=== PATIENT | female | born 1945 | race Two or more races ===

== ENCOUNTER 2019-12-18 10:17 | Outpatient (CLI) | payer OTHER | END 2019-12-18 10:22 | disposition home or self-care (01) | LOC: RAD 10:17 | PROVIDERS: ATTEND Specialist | DX: J45.998 Other asthma (principal); J44.9 Chronic obstructive pulmonary disease, unspecified ==

== ENCOUNTER → 2020-06-16 | Outpatient (CLI) | payer OTHER | END | disposition home or self-care (01) | LOC: TOM 12:15 | PROVIDERS: ATTEND Specialist | DX: M48.07 Spinal stenosis, lumbosacral region (principal); I72.8 Aneurysm of other specified arteries; M51.17 Intervertebral disc disorders with radiculopathy, lumbosacral region ==

== ENCOUNTER 2020-09-16 13:54 | Emergency (ER) | payer OTHER ==
[~2020-09-16] VITALS: Ht 157.5 cm; Wt 56.7 kg
[2020-09-16] MEDS ORDERED: CHILDREN'S ASPI81 MG PO (14:15)
[2020-09-16] MEDS ORDERED: SIMVASTATIN40 MG PO (14:15)
[2020-09-16] MEDS ORDERED: TOPROL XL25 M1 PO (14:15)
== END 2020-09-16 18:43 | disposition home or self-care (01) ==
LOC: ER 13:54
DX: J06.9 Acute upper respiratory infection, unspecified (principal); Z03.818 Encounter for observation for suspected exposure to other biological agents ruled out

== ENCOUNTER 2020-09-22 13:55 | Emergency (ER) | payer OTHER ==
[~2020-09-22] VITALS: Ht 157.5 cm; Wt 56.7 kg
[~2020-09-22 13:55] MED LIST: CHILDREN'S ASPI81 MG PO; SIMVASTATIN40 MG PO; TOPROL XL25 M1 PO
[2020-09-22] MEDS ORDERED: MUCINEX DM ER1 EAC1 PO (20:17)
[2020-09-22] MEDS ORDERED: ZYRTEC10 MG PO (20:17)
== END 2020-09-22 20:34 | disposition home or self-care (01) ==
LOC: ER 13:55
DX: J30.89 Other allergic rhinitis (principal); J06.9 Acute upper respiratory infection, unspecified

== ENCOUNTER 2020-12-25 19:50 | Emergency (ER) | payer OTHER ==
[~2020-12-25] VITALS: Ht 152.4 cm; Wt 58.1 kg
[~2020-12-25 19:50] MED LIST changes: +MUCINEX DM ER1 EAC1 PO; +ZYRTEC10 MG PO
[2020-12-25] MEDS ORDERED: ZESTRIL2.5 MG (20:31)
[2020-12-25] MEDS ORDERED: CRESTOR40 MG (20:31)
[2020-12-25] MEDS ORDERED: FLONASE ALLERG9.9 ML IH (23:07)
[2020-12-25] MEDS ORDERED: MUCINEX DM ER1 EAC1 PO (23:07)
== END 2020-12-25 23:49 | disposition home or self-care (01) ==
LOC: ER 19:50 → EMR PED 20:04 → ER 23:49
DX: J06.9 Acute upper respiratory infection, unspecified (principal); R53.81 Other malaise; Z11.52 Encounter for screening for COVID-19

== ENCOUNTER 2021-11-26 07:19 | Outpatient (CLI) | payer OTHER ==
[~2021-11-26 07:19] MED LIST changes: +CRESTOR40 MG; +FLONASE ALLERG9.9 ML IH; +ZESTRIL2.5 MG
== END 2021-11-26 07:21 | disposition home or self-care (01) ==
LOC: SONOGRAMA 07:19
PROVIDERS: ATTEND Internal Medicine Cardiovascular Disease
DX: I71.02 Dissection of abdominal aorta (principal)

== ENCOUNTER 2021-12-23 13:51 | Inpatient (IN) | payer OTHER ==
[~2021-12-23] VITALS: Ht 154.9 cm; Wt 58.1 kg
--- NOTE | 2021-12-23 14:01 | NUR ---
SE RECIBE PTE ALERTA ORIENTADA X3. PTE REFIERE SENTIR DOLOR DE [facility] Y [facility], SE JUAN F TEMPERATURA 102.1,PTE REFIERE TENER TOS HACE 3 [place]. SE SHARIFA S/V Y SE UBICA.
--- NOTE | 2021-12-23 14:39 | NUR ---
LAB TESTS ARE TAKEN AND MEDS ARE ADMINISTERED ACCORDINGLY.
[2021-12-24] MEDS ORDERED: EZETIMIBE10 MG (08:59)
== END 2021-12-29 10:30 | disposition home or self-care (01) | DRG 195 ==
LOC: ER 13:51 → MEDJ 19:56
PROVIDERS: ADMIT Specialist; ATTEND Specialist
PROC: BW24ZZZ Computerized Tomography (CT Scan) of Chest and Abdomen (ICD-10-PCS; principal; 2021-12-23)
DX: J18.9 Pneumonia, unspecified organism (principal); R09.02 Hypoxemia; R06.02 Shortness of breath; I11.9 Hypertensive heart disease without heart failure; I25.10 Atherosclerotic heart disease of native coronary artery without angina pectoris; F17.200 Nicotine dependence, unspecified, uncomplicated; Z20.822 Contact with and (suspected) exposure to COVID-19

== ENCOUNTER 2022-01-14 13:15 | Outpatient (CLI) | payer OTHER ==
[~2022-01-14 13:15] MED LIST changes: +EZETIMIBE10 MG
== END 2022-01-14 13:17 | disposition home or self-care (01) ==
LOC: MAMO-SONO 13:15 → NUCLEAR 13:30
PROVIDERS: ATTEND Internal Medicine Cardiovascular Disease
DX: Z12.31 Encounter for screening mammogram for malignant neoplasm of breast (principal); N63.11 Unspecified lump in the right breast, upper outer quadrant

== ENCOUNTER 2022-01-14 14:33 | Outpatient (CLI) | payer OTHER | END 2022-01-14 14:34 | disposition home or self-care (01) | LOC: NUCLEAR 14:33 | PROVIDERS: ATTEND Internal Medicine Cardiovascular Disease | DX: M81.0 Age-related osteoporosis without current pathological fracture (principal); E55.9 Vitamin D deficiency, unspecified ==

== ENCOUNTER 2022-07-01 07:23 | Emergency (ER) | payer OTHER ==
[~2022-07-01] VITALS: Ht 154.9 cm; Wt 54.9 kg
== END 2022-07-01 16:03 | disposition home or self-care (01) ==
LOC: ER 07:23
DX: K57.32 Diverticulitis of large intestine without perforation or abscess without bleeding (principal); E78.00 Pure hypercholesterolemia, unspecified; I10 Essential (primary) hypertension

== ENCOUNTER 2023-05-19 17:52 | Emergency (ER) | payer OTHER ==
[~2023-05-19] VITALS: Ht 154.9 cm; Wt 57.6 kg
[2023-05-19 19:14] LABS: HEMATOCRIT 42.9 % (36.0-45.00); HEMOGLOBIN 14.5 g/dL (12.0-15.00); MEAN CELL VOLUME 86.8 fL (80.00-100.00); MEAN CORPUSCULAR HEMOGLOBIN 29.4 pg (27.00-32.0); MEAN CORPUSCULAR HGB CONC 33.9 g/dl (32.0-36.0); PLATELET COUNT 209 K/uL (150-450); RED BLOOD COUNT 4.95 M/uL (4.00-6.00); RED CELL DISTRIBUTION WIDTH 14.5 % (11.5-14.5)
[2023-05-19 19:40] LABS: ALBUMIN 3.6 gm/dL (3.4-5.0); BILIRUBIN TOTAL 0.37 mg/dL (0.3-1.2); CALCIUM 8.8 mg/dL (8.5-10.1); CREATININE SERUM 0.72 mg/dL (0.55-1.02); GFR 78.75; GLOBULINA 3.6 G/DL (2.4-3.5); POTASSIUM 3.66 mEq/L (3.5-5.1); TOTAL PROTEIN 7.2 gm/dL (6.4-8.2)
[2023-05-19] MEDS ORDERED: KETO10TA2 PO (20:07)
[2023-05-19] MEDS ORDERED: PEPCID AC20 MG PO (20:07)
[2023-05-19] MEDS ORDERED: TAMS0.4C PO (20:07)
== END 2023-05-19 21:10 | disposition home or self-care (01) ==
LOC: ER 17:52
PROVIDERS: General Practice
DX: N20.1 Calculus of ureter (principal); I11.9 Hypertensive heart disease without heart failure; K57.30 Diverticulosis of large intestine without perforation or abscess without bleeding; N13.39 Other hydronephrosis
CPT/HCPCS: 36415; 74176; 96365; 96366; 99284; J1885; J2543; J3490; J7030

== ENCOUNTER 2023-05-24 08:27 | Outpatient (CLI) | payer OTHER ==
[~2023-05-24 08:27] MED LIST changes: +KETO10TA2 PO; +PEPCID AC20 MG PO; +TAMS0.4C PO
== END 2023-05-24 08:34 | disposition home or self-care (01) ==
LOC: RAD 08:27
PROVIDERS: ATTEND General Practice
DX: N20.9 Urinary calculus, unspecified (principal)

== ENCOUNTER 2023-06-13 13:13 | Outpatient (CLI) | payer OTHER | END 2023-06-13 13:24 | disposition home or self-care (01) | LOC: RAD 13:13 | PROVIDERS: ATTEND Urology | DX: N20.1 Calculus of ureter (principal) ==

== ENCOUNTER 2023-06-28 15:17 | Emergency (ER) | payer OTHER ==
[~2023-06-28] VITALS: Ht 157.5 cm; Wt 49.9 kg
[2023-06-28] MEDS ORDERED: AMOX-CLAV 875-1 EAC1 PO (16:43)
[2023-06-28] MEDS ORDERED: AYR SALINE50 ML NASAL (16:43)
[2023-06-28] MEDS ORDERED: ZYRTEC10 MG PO (16:43)
[2023-06-28] MEDS ORDERED: FLONASE ALLERG9.9 ML NASAL (16:43)
== END 2023-06-28 16:50 | disposition home or self-care (01) ==
LOC: ER 15:17
DX: J32.9 Chronic sinusitis, unspecified (principal); F17.210 Nicotine dependence, cigarettes, uncomplicated; I10 Essential (primary) hypertension

== ENCOUNTER 2023-07-18 11:01 | Outpatient (CLI) | payer OTHER ==
[~2023-07-18 11:01] MED LIST changes: +AMOX-CLAV 875-1 EAC1 PO; +AYR SALINE50 ML NASAL; +FLONASE ALLERG9.9 ML NASAL
== END 2023-07-18 11:05 | disposition home or self-care (01) ==
LOC: RAD 11:01
DX: N20.0 Calculus of kidney (principal); N20.1 Calculus of ureter

== ENCOUNTER 2023-07-18 12:07 | Outpatient (CLI) | payer OTHER | END 2023-07-18 13:23 | disposition home or self-care (01) | LOC: EKG 12:07 | PROVIDERS: ATTEND Urology | DX: N20.0 Calculus of kidney (principal); N20.1 Calculus of ureter ==

== ENCOUNTER 2023-08-18 13:23 | Outpatient (CLI) | payer OTHER | END 2023-08-18 13:28 | disposition home or self-care (01) | LOC: RAD 13:23 | PROVIDERS: ATTEND Urology | DX: N20.0 Calculus of kidney (principal) ==

== ENCOUNTER 2023-11-22 12:03 | Outpatient (CLI) | payer OTHER ==
[~2023-11-22 12:03] MED LIST changes: +CRESTOR20 MG PO; +TOPROL XL50 M1 PO; +ZESTRIL10 M1 PO
== END 2023-11-22 12:15 | disposition home or self-care (01) ==
LOC: SONOGRAMA 12:03
PROVIDERS: ATTEND Urology
DX: N13.0 Hydronephrosis with ureteropelvic junction obstruction (principal); N20.0 Calculus of kidney

== ENCOUNTER 2024-05-10 14:17 | Emergency (ER) | payer OTHER ==
[~2024-05-10] VITALS: Ht 157.5 cm; Wt 56.7 kg
[2024-05-10 15:08] VITALS: BP 139/87; O2SAT 98
[2024-05-10] MEDS ORDERED: CEFTRIAXONE SODIUM 1,000 MG VIAL IM STA (17:35)
[2024-05-10] MEDS ORDERED: LIDOCAINE HCL 1% 10ML VIAL ONE (17:39)
[2024-05-10] MEDS ORDERED: CEFTRIAXONE SODIUM 1,000 MG VIAL ONE (17:39)
[2024-05-10] MEDS ORDERED: ZITHROMAX500 MG PO (18:47)
== END 2024-05-10 18:56 | disposition home or self-care (01) ==
LOC: ER 14:19
DX: R53.81 Other malaise (principal); J32.9 Chronic sinusitis, unspecified

== ENCOUNTER → 2024-05-21 | Emergency (ER) | payer OTHER ==
[~2024-05-21] VITALS: Ht 154.9 cm; Wt 56.7 kg
[~2024-05-21] MED LIST changes: +BUDESONIDE 0.5 MG/2 ML AMPUL.NEB IH ONE; +BUDESONIDE 0.5 MG/2 ML AMPUL.NEB IH STA; +CEFTRIAXONE SODIUM 1,000 MG VIAL IV STA; +CEFTRIAXONE SODIUM 1,000 MG VIAL ONE; +GUAIFENESIN/DEXTROMETHORPHAN 10ML BLIST.PACK PO ONE; +LEVALBUTEROL HCL 0.63 MG/3 ML SOLUTION IH ONE; +LEVALBUTEROL HCL 1.25 MG/3 ML SOLUTION IH ONE; +LEVALBUTEROL HCL 1.25 MG/3 ML SOLUTION IH STA; +METHYLPREDNISOLONE SOD SUCC 125 MG VIAL IV STA; +METHYLPREDNISOLONE SOD SUCC 125 MG VIAL ONE; +ORAPRED ODT10 MG PO; +ZITHROMAX500 MG PO
[2024-05-21 19:09] LABS: HEMATOCRIT 43.2 % (36.0-45.00); HEMOGLOBIN 14.3 g/dL (12.0-15.00); MEAN CELL VOLUME 88.5 fL (80.00-100.00); MEAN CORPUSCULAR HEMOGLOBIN 29.3 pg (27.00-32.0); MEAN CORPUSCULAR HGB CONC 33.1 g/dl (32.0-36.0); PLATELET COUNT 237 K/uL (150-450); RED BLOOD COUNT 4.88 M/uL (4.00-6.00); RED CELL DISTRIBUTION WIDTH 14.1 % (11.5-14.5)
[2024-05-21 19:54] LABS: CALCIUM 9.1 mg/dL (8.5-10.1); CREATININE SERUM 0.67 mg/dL (0.55-1.02); GFR 85.35; POTASSIUM 3.54 mEq/L (3.5-5.1)
== END | disposition home or self-care (01) ==
LOC: ER 15:57
PROVIDERS: General Practice
DX: J11.1 Influenza due to unidentified influenza virus with other respiratory manifestations (principal); R05.9 Cough, unspecified; Z20.822 Contact with and (suspected) exposure to COVID-19
CPT/HCPCS: 36415; 71046; 96365; 99283; J0696; J3490

== ENCOUNTER 2024-05-23 03:02 | Inpatient (IN) | payer OTHER ==
[~2024-05-23] VITALS: Ht 157.5 cm; Wt 56.7 kg
[~2024-05-23 03:02] MED LIST changes: -BUDESONIDE 0.5 MG/2 ML AMPUL.NEB IH ONE; -BUDESONIDE 0.5 MG/2 ML AMPUL.NEB IH STA; -CEFTRIAXONE SODIUM 1,000 MG VIAL IV STA; -CEFTRIAXONE SODIUM 1,000 MG VIAL ONE; -GUAIFENESIN/DEXTROMETHORPHAN 10ML BLIST.PACK PO ONE; -LEVALBUTEROL HCL 0.63 MG/3 ML SOLUTION IH ONE; -LEVALBUTEROL HCL 1.25 MG/3 ML SOLUTION IH ONE; -LEVALBUTEROL HCL 1.25 MG/3 ML SOLUTION IH STA; -METHYLPREDNISOLONE SOD SUCC 125 MG VIAL IV STA; -METHYLPREDNISOLONE SOD SUCC 125 MG VIAL ONE
[2024-05-23] MEDS ORDERED: METHYLPREDNISOLONE SOD SUCC 125 MG VIAL IV STA (04:57)
[2024-05-23] MEDS ORDERED: GUAIFENESIN 200 MG/10 ML BLIST.PACK PO STA (04:57)
[2024-05-23] MEDS ORDERED: 0.9 % SODIUM CHLORIDE 1,000 ML IV ONE (05:00)
[2024-05-23] MEDS ORDERED: LEVALBUTEROL HCL 0.63 MG/3 ML SOLUTION IH SCH ×2 (05:00→09:00)
[2024-05-23 06:15] LABS: ABG PH 7.477 (7.35-7.45); ABG pCO2 35.5 mmHg (35-45); BASE EXCESS 2.4 mmol/l; BICARBONATE 25.7 mmol/l (23-25); Tco2 26.7 mmol/l; allen test SATISFACTORY; o2 21 %; puncture site RADIAL LEFT
[2024-05-23 06:16] LABS: ABG PO2 43.2 mmHg (80-100)
[2024-05-23 06:29] LABS: HEMATOCRIT 41.2 % (36.0-45.00); HEMOGLOBIN 13.9 g/dL (12.0-15.00); MEAN CORPUSCULAR HEMOGLOBIN 29.6 pg (27.00-32.0); MEAN CORPUSCULAR HGB CONC 33.7 g/dl (32.0-36.0); PLATELET COUNT 175 K/uL (150-450); RED BLOOD COUNT 4.68 M/uL (4.00-6.00); RED CELL DISTRIBUTION WIDTH 14.5 % (11.5-14.5)
[2024-05-23 07:30] LABS: ALBUMIN 3.3 gm/dL (3.4-5.0); BILIRUBIN TOTAL 0.49 mg/dL (0.3-1.2); CALCIUM 8.3 mg/dL (8.5-10.1); CREATININE SERUM 0.64 mg/dL (0.55-1.02); GFR 89.98; GLOBULINA 2.6 G/DL (2.4-3.5); POTASSIUM 3.86 mEq/L (3.5-5.1); TOTAL PROTEIN 5.9 gm/dL (6.4-8.2)
[2024-05-23 08:04] LABS: URINE APPEARANCE Clear; URINE BACTERIA 14.6 uL (0.0-1933); URINE BILIRRUBIN Negative (NEGATIVE); URINE BLOOD Small; URINE COLOR Yellow; URINE EPITHELIAL CELLS 1.5 uL (0.0-38.8); URINE GLUCOSE Negative (NEGATIVE); URINE KETONE Negative (NEGATIVE); URINE LEUKOCYTE Negative; URINE NITRATE Negative; URINE PROTEIN Negative (NEGATIVE); URINE RBC 27.5 uL (0.0-20.8); URINE UROBILINOGEN 0.2 E.U./dl
[2024-05-23] MEDS ORDERED: LEVALBUTEROL HCL 0.63 MG/3 ML SOLUTION IH ONE (13:40)
[2024-05-23] MEDS ORDERED: AZITHROMYCIN 500 MG VIAL IV SCH (18:43)
[2024-05-23] MEDS ORDERED: OSELTAMIVIR PHOSPHATE 75 MG CAPSULE PO SCH (18:43)
[2024-05-23] MEDS ORDERED: METOPROLOL TARTRATE 50 MG TABLET PO SCH (18:44)
[2024-05-23] MEDS ORDERED: LISINOPRIL 10 MG TABLET PO SCH (18:44)
[2024-05-23] MEDS ORDERED: 0.9 % SODIUM CHLORIDE 1,000 ML IV SCH (18:45)
[2024-05-23] MEDS ORDERED: ACETAMINOPHEN 500 MG GEL..CAP PO PRN (18:45)
[2024-05-23] MEDS ORDERED: AZITHROMYCIN 500 MG VIAL IV ONE (20:16)
[2024-05-23] MEDS ORDERED: METOPROLOL TARTRATE 25 MG TABLET PO ONE (20:16)
[2024-05-23] MEDS ORDERED: OSELTAMIVIR PHOSPHATE 75 MG CAPSULE PO ONE (20:16)
[2024-05-23 21:04] VITALS: BP 100/50; O2SAT 94
[2024-05-23 22:04] LABS: INR 1.15; PARTIAL THROMBOPLASTIN TIME 34.7 SECONDS (22.0-34.0); PROTHROMBIN TIME 12.4 SECONDS (9.0-11.5)
[2024-05-24 00:19] VITALS: BP 109/69; O2SAT 95
[2024-05-24 06:52] VITALS: BP 107/71
[2024-05-24] MEDS ORDERED: AZITHROMYCIN 500 MG VIAL IV ONE (08:11)
[2024-05-24 09:35] VITALS: BP 123/67
[2024-05-24 11:56] LABS: ABG PO2 51.8 mmHg (80-100); BASE EXCESS 1.6 mmol/l; BICARBONATE 25.9 mmol/l (23-25); SaO2 87.6 %; Tco2 27.2 mmol/l; allen test SATISFACTORY; o2 21 %; puncture site RADIAL LEFT
[2024-05-24] MEDS ORDERED: LACTOBACILLUS ACIDOPHILUS 1 CAP CAP PO SCH (17:00)
[2024-05-24 18:30] VITALS: BP 115/58
[2024-05-24] MEDS ORDERED: OSELTAMIVIR PHOSPHATE 30MG CAP PO SCH (21:00)
[2024-05-25 02:56] VITALS: BP 127/66; O2SAT 95
[2024-05-25 04:24] LABS: ERYTHROCYTE SEDIMENTATION RATE 5 mm/hr
[2024-05-25 04:31] LABS: HEMATOCRIT 40.7 % (36.0-45.00); HEMOGLOBIN 14.2 g/dL (12.0-15.00); MEAN CELL VOLUME 86.2 fL (80.00-100.00); MEAN CORPUSCULAR HGB CONC 34.8 g/dl (32.0-36.0); RED BLOOD COUNT 4.72 M/uL (4.00-6.00); RED CELL DISTRIBUTION WIDTH 14.6 % (11.5-14.5)
[2024-05-25 04:45] LABS: ALBUMIN 2.7 gm/dL (3.4-5.0); BILIRUBIN TOTAL 0.38 mg/dL (0.3-1.2); CALCIUM 8.1 mg/dL (8.5-10.1); GFR 131.72; GLOBULINA 2.4 G/DL (2.4-3.5); MAGNESIUM 1.8 mg/dL (1.8-2.4); POTASSIUM 3.08 mEq/L (3.5-5.1); TOTAL PROTEIN 5.1 gm/dL (6.4-8.2)
[2024-05-25 04:46] LABS: C-REACTIVE PROTEIN 0.51 MG/DL (0.00-0.29)
[2024-05-25 04:47] LABS: CREATININE SERUM 0.46 mg/dL (0.55-1.02)
[2024-05-25 05:03] LABS: PLATELET COUNT 148 K/uL (150-450)
[2024-05-25] MEDS ORDERED: AZITHROMYCIN 500 MG VIAL IV ONE (07:39)
[2024-05-25] MEDS ORDERED: POTASSIUM BICARBONATE/CIT AC 25 MEQ TABLET.EFF PO SCH (08:00)
[2024-05-25 09:43] VITALS: BP 117/70
[2024-05-25] MEDS ORDERED: METHYLPREDNISOLONE SOD SUCC 40 MG VIAL IV SCH (17:00)
[2024-05-25 17:38] VITALS: BP 91/55; O2SAT 92
[2024-05-25] MEDS ORDERED: OSELTAMIVIR PHOSPHATE 75 MG CAPSULE PO SCH (21:00)
[2024-05-26 02:10] VITALS: BP 127/62; O2SAT 98
[2024-05-26 09:21] LABS: ABG PH 7.482 (7.35-7.45); ABG pCO2 34.6 mmHg (35-45); BASE EXCESS 2.3 mmol/l; BICARBONATE 25.3 mmol/l (23-25); SaO2 91.4 %; Tco2 26.4 mmol/l
[2024-05-26 09:47] VITALS: BP 125/77; O2SAT 98
[2024-05-26 10:13] LABS: ALBUMIN 2.8 gm/dL (3.4-5.0); BILIRUBIN TOTAL 0.36 mg/dL (0.3-1.2); CALCIUM 8.7 mg/dL (8.5-10.1); CREATININE SERUM 0.56 mg/dL (0.55-1.02); GFR 104.97; GLOBULINA 2.7 G/DL (2.4-3.5); MAGNESIUM 2.1 mg/dL (1.8-2.4); POTASSIUM 4.19 mEq/L (3.5-5.1); TOTAL PROTEIN 5.5 gm/dL (6.4-8.2)
[2024-05-26 10:54] LABS: allen test SATISFACTORY; o2 21 %; puncture site RADIAL LEFT
[2024-05-26 10:55] LABS: ABG PO2 56.2 mmHg (80-100)
[2024-05-26 11:26] LABS: HEMATOCRIT 43.2 % (36.0-45.00); HEMOGLOBIN 14.9 g/dL (12.0-15.00); MEAN CORPUSCULAR HEMOGLOBIN 30.1 pg (27.00-32.0); MEAN CORPUSCULAR HGB CONC 34.6 g/dl (32.0-36.0); PLATELET COUNT 133 K/uL (150-450); RED BLOOD COUNT 4.96 M/uL (4.00-6.00); RED CELL DISTRIBUTION WIDTH 14.6 % (11.5-14.5)
[2024-05-26 18:17] VITALS: BP 132/68
[2024-05-27 02:18] VITALS: BP 97/61
[2024-05-27 09:54] VITALS: BP 114/70; O2SAT 98
[2024-05-27 18:46] VITALS: BP 132/81
[2024-05-28 02:12] VITALS: BP 140/69
[2024-05-28 09:31] VITALS: BP 130/73; O2SAT 96
[2024-05-28 10:58] LABS: ABG PH 7.475 (7.35-7.45); ABG PO2 66.9 mmHg (80-100); ABG pCO2 33.4 mmHg (35-45); BASE EXCESS 1.1 mmol/l; BICARBONATE 24.1 mmol/l (23-25); SaO2 94.4 %; Tco2 25.1 mmol/l; allen test SATISFACTORY; o2 21 %; puncture site RADIAL LEFT
[2024-05-28 18:21] VITALS: BP 140/75; O2SAT 98
[2024-05-29 00:54] VITALS: BP 130/61; O2SAT 97
[2024-05-29] MEDS ORDERED: XOPENEX HFA15 GM IH (08:11)
[2024-05-29] MEDS ORDERED: SYMBICORT 16010.2 GM IH (08:12)
[2024-05-29] MEDS ORDERED: MEDROLPACK PO (08:13)
[2024-05-29] MEDS ORDERED: PROTONIX40 MG PO (08:14)
[2024-05-29 08:40] VITALS: BP 129/79
== END 2024-05-29 12:44 | disposition home or self-care (01) | DRG 195 ==
LOC: ER 03:04 → MEDJ 19:13 → SEC-K 19:13 → MEDI 05-24 00:29 → MEDJ 05-24 00:29
PROVIDERS: General Practice; ADMIT Internal Medicine; ATTEND Internal Medicine
PROC: BB24ZZZ Computerized Tomography (CT Scan) of Bilateral Lungs (ICD-10-PCS; principal; 2024-05-23)
PROC: 3E0F7GC Introduction of Other Therapeutic Substance into Respiratory Tract, Via Natural or Artificial Opening (ICD-10-PCS; 2024-05-23)
DX: J10.1 Influenza due to other identified influenza virus with other respiratory manifestations (principal); R09.02 Hypoxemia; I10 Essential (primary) hypertension; F17.200 Nicotine dependence, unspecified, uncomplicated; E78.49 Other hyperlipidemia; J44.89 Other specified chronic obstructive pulmonary disease; I25.10 Atherosclerotic heart disease of native coronary artery without angina pectoris

== ENCOUNTER 2024-06-08 15:32 | Emergency (ER) | payer OTHER ==
[~2024-06-08] VITALS: Ht 154.9 cm; Wt 54.4 kg
[~2024-06-08 15:32] MED LIST changes: +MEDROLPACK PO; +PROTONIX40 MG PO; +SYMBICORT 16010.2 GM IH; +XOPENEX HFA15 GM IH
== END 2024-06-08 18:07 | disposition home or self-care (01) ==
LOC: ER 15:32
DX: S09.8XXA Other specified injuries of head, initial encounter (principal); W18.39XA Other fall on same level, initial encounter; Y93.89 Activity, other specified; Y92.89 Other specified places as the place of occurrence of the external cause

== ENCOUNTER 2024-08-06 13:09 | Outpatient (CLI) | payer OTHER | END 2024-08-06 13:12 | disposition home or self-care (01) | LOC: RAD 13:09 | PROVIDERS: ATTEND Urology | DX: N20.0 Calculus of kidney (principal) ==